=== PATIENT | female | born 1985 | race Caucasian/White ===

== ENCOUNTER 2020-11-23 01:52 | Emergency (ER) | payer OTHER ==
[~2020-11-23] VITALS: Ht 167.6 cm; Wt 62.1 kg
[2020-11-23] MEDS ORDERED: MUCINEX DM ER1 EAC1 PO (04:05)
[2020-11-23] MEDS ORDERED: ACETAMINOPHEN650 M2 PO (04:05)
[2020-11-23] MEDS ORDERED: AZITHROMYCIN500 MG PO (04:05)
[2020-11-23] MEDS ORDERED: ACETAMINOPHEN650 M2 (04:07)
== END 2020-11-23 04:34 | disposition home or self-care (01) ==
LOC: ER 01:52
DX: B34.9 Viral infection, unspecified (principal); J06.9 Acute upper respiratory infection, unspecified; Z20.822 Contact with and (suspected) exposure to COVID-19

== ENCOUNTER 2020-11-29 09:45 | Outpatient (CLI) | payer OTHER ==
[~2020-11-29 09:45] MED LIST: ACETAMINOPHEN650 M2; ACETAMINOPHEN650 M2 PO; AZITHROMYCIN500 MG PO; MUCINEX DM ER1 EAC1 PO
== END 2020-11-29 15:00 | disposition home or self-care (01) ==
LOC: LAB 09:45
DX: Z03.818 Encounter for observation for suspected exposure to other biological agents ruled out (principal)

== ENCOUNTER 2020-12-10 12:17 | Outpatient (CLI) | payer OTHER | END 2020-12-10 12:21 | disposition home or self-care (01) | LOC: LAB 12:17 | PROVIDERS: ATTEND Emergency Medicine Pediatric Emergency Medicine | DX: Z03.818 Encounter for observation for suspected exposure to other biological agents ruled out (principal) ==

== ENCOUNTER 2020-12-17 09:19 | Outpatient (CLI) | payer OTHER | END 2020-12-17 18:00 | disposition home or self-care (01) | LOC: LAB 09:19 | PROVIDERS: ATTEND Emergency Medicine Pediatric Emergency Medicine | DX: Z03.818 Encounter for observation for suspected exposure to other biological agents ruled out (principal) ==